=== PATIENT | female | born 1955 | race Caucasian/White ===

== ENCOUNTER 2018-08-08 03:15 | Inpatient (IN) ==
[2018-08-08] MEDS ORDERED: TORADOL IM ONE (03:43)
--- NOTE | 2018-08-08 03:49 | PROVIDER DOCUMENTATION ---
HPI-Musculoskeletal Pain/Inj - GENERAL Chief Complaint: Hip Injury Stated Complaint: HIP PAIN Time Seen by Provider: 08/08/18 03:43 Source: patient, family - HX OF PRESENT ILLNESS-MUSKULOSKELTAL Nature of Presenting Problem: 62 YOU REPORTS FALING OUT OF CHAIR 8 HR AGO ONTO LEFT HIP. NOW PIAN IS MODERATE LAYING DOWN AND MUCH WORSE W/ ATEMPTED LEFT WT-BEARING. OTHERWISE HEALTHY. PT AND DOWN FROM [place] FOR [employer]. Onset/Duration: 4-6 hours ago Timing: still present Review of Systems - Adult - REVIEW OF SYSTEMS - ADULT Constitutional: reports: no symptoms reported. denies: chills Eyes: reports: no symptoms reported Ears, Nose, Mouth & Throat: reports: no symptoms reported Cardiovascular: reports: no symptoms reported Respiratory: reports: no symptoms reported Gastrointestinal: reports: no symptoms reported Genitourinary: reports: no symptoms reported Musculoskeletal: reports: no symptoms reported Integumentary: reports: no symptoms reported Neurological: reports: no symptoms reported Psychiatric: reports: no symptoms reported Endocrine: reports: no symptoms reported Hematologic/Lymphatic: reports: no symptoms reported Allergic/Immunologic: reports: no symptoms reported All Other Systems: Reviewed and Negative Past History - Adult - PAST MEDICAL HISTORY-ADULT Review of Records: reports: Nursing Assessment Review, Medications Reviewed, Social history reviewed & non-contributory. Major Childhood Illnesses: reports: denies history Cardiovascular: reports: denies history Respiratory: reports: denies history Gastrointestinal: reports: denies history Obstetrical/Gynecological: reports: denies history Genitourinary: reports: denies history Musculoskeletal: reports: denies history Neurological: reports: denies history Endocrine/Immune: reports: denies history Other Conditions: reports: denies history Physical Exam-Injury Related - Physical Exam-Injury Related Initial Vital Signs Reviewed: Yes General Appearance: appears well, alert Eyes: PERRL/EOMI Head, Ears, Nose, Mouth & Throat: moist mucous membranes Neck: full range of motion, supple Respiratory: lungs clear, normal breath sounds Cardiovascular: regular rate, rhythm, no murmur Abdominal Exam: normal bowel sounds, non tender, soft Extremity: tenderness, other (PAIN W/ ATTEMPTED ROM LEFT HIP) Integumentary: normal color, warm/dry Neurologic: merchandising team lead II-XII nml as tested, grossly normal, no motor/sensory deficits Psych/Mental Status: normal mood/affect, normal thought content, normal thought process, oriented x 3 Progress - PLAN OF CARE/RESULTS Progress/Plan/Lab Results: Vital Signs - 8 hr 08/08/18 03:24 08/08/18 03:30 Temperature 98.2 F Pulse Rate 72 76 Respiratory Rate 18 15 Blood Pressure 107/48 107/48 O2 Sat by Pulse Oximetry 99 98 Orders Category Date Time Status Jalloh Cath Insertion ORDERED Care 08/08/18 04:24 Active XRAY PELVIS W/HIP 2-3VW LT [RAD] Stat Exams 08/08/18 03:43 Taken BASIC METABOLIC PANEL [CHEM] Stat Lab 08/08/18 04:24 Ordered CBC WITH ELECTRONIC DIFF [HEME] Stat Lab 08/08/18 04:51 Ordered PROTIME WITH INR [COAG] Stat Lab 08/08/18 04:51 Ordered PTT [COAG] Stat Lab 08/08/18 04:51 Ordered URINALYSIS W/POSS RFLX CULT [URINALYSIS] Stat Lab 08/08/18 04:24 Uncollected Hydromorphone [Dilaudid] Med 08/08/18 04:56 Discontinued 1 mg IV NOW ONE Ketorolac [Toradol] Med 08/08/18 03:43 Discontinued 60 mg IM NOW ONE Ondansetron [Zofran] Med 08/08/18 04:56 Discontinued 8 mg IV NOW ONE - XRAY 1 XRAY Study: Hip Impression: Abnormal (SUB-CAP FX LEFT HIP) - CONSULTS/PCP/HOSPITALIST Notification #1 *Consult/PCP/Hospitalist*: YESSI PICKARD Time Discussed: 04:27 Consult Disposition: Admit (ADMIT TO HOSPITALIST) #2 Consult: DR MCHUGH Time Discussed: 04:58 Consult Disposition: Admit Departure - Departure Date of Disposition Decision: 08/08/18 Time of Disposition Decision: 04:22 DIAGNOSIS: Closed fracture of left hip requiring operative repair Disposition: ADMITTED INPATIENT 09 Certified Medical Emergency: Emergent Condition: Stable Referrals and Follow-Ups: None,PCP [Primary Care Provider] - - Critical Care Note This patient required my direct & personal management of CC.: No Attestation - Physician/ MILO Attestation The physician spent face to face time with patient:: Yes Advanced Practice Provider documentation review:: Supervising physician onsite and consulted in the evaluation and care of this patient. The physician did have a face to face encounter with the patient.
[2018-08-08] MEDS ORDERED: DILAUDID IV ONE (04:56)
[2018-08-08] MEDS ORDERED: ZOFRAN IV ONE (04:56)
[2018-08-08 05:40] LABS: URINE SOURCE CATH
[2018-08-08 05:41] LABS: BASO# 0.03 X1000 (0.0-0.2); BASO% 0.4 % (0.0-0.8); EOS# 0.02 X1000 (0.0-0.7); EOS% 0.2 % (0.0-10.0); HEMATOCRIT 35.5 % (37.0-47.0); HEMOGLOBIN 12.6 g/dL (12.0-16.0); IMM GRAN# 0.03 X1000 (0.0-0.04); IMM GRAN% 0.4 % (0.0-0.5); LYMPH# 0.44 X1000 (1.2-3.4); LYMPH% 5.4 % (20.5-51.1); MCH 32.1 PG (27-31); MCHC 35.5 g/dL (33-37); MCV 90.3 FL (81-99); MONO# 0.56 X1000 (0.11-0.59); MONO% 6.9 % (1.7-9.3); NEUT# 7.01 X1000 (1.4-6.5); NEUT% 86.7 % (42.2-75.2); PLT 362 X1000 (130-400); RBC 3.93 XMIL (4.2-5.4); RDW 13.1 % (11.5-14.5); WBC 8.09 X1000 (4.8-10.8)
[2018-08-08 05:43] LABS: BILIRUBIN URINE NEGATIVE (NEGATIVE); BLOOD URINE MODERATE (NEGATIVE); COLOR YELLOW; GLUCOSE URINE NEGATIVE (NEGATIVE); KETONE URINE NEGATIVE (NEGATIVE); LEUKOCYTES URINE LARGE (NEGATIVE); NITRITE URINE NEGATIVE (NEGATIVE); PH URINE 6.5; PROTEIN URINE NEGATIVE (NEGATIVE); TURBIDITY URINE CLEAR (CLEAR); UR EPITHELIAL CELLS <10 /HPF (<10); URINE BACTERIA NEGATIVE /HPF; URINE RBC <10 /HPF (<10); URINE WBC <10 /HPF (<10); UROBILINOGEN URINE NORMAL (NORMAL)
[2018-08-08 05:44] LABS: INR 0.88; PROTIME 12.7 Seconds (11.0-16.0); PTT 31.7 Seconds (22.3-41.8)
[2018-08-08 06:00] LABS: AGAP 9; ALB/GLOB RATIO 1.6; ALBUMIN 4.1 g/dL (3.5-5.0); ALKALINE PHOSPHATASE 73 U/L (32-104); BUN 15 mg/dL (8-22); CALCIUM 8.4 mg/dL (8.8-10.2); CHLORIDE 90 mmol/L (98-107); COSMO 264; CREATININE 0.6 mg/dL (0.5-0.9); ESTIMATED GFR > 60; GLUCOSE 100 mg/dL (70-104); GOT 22 U/L (10-30); GPT 16 U/L (10-36); POTASSIUM 3.4 mmol/L (3.5-5.1); SODIUM 131 mmol/L (136-145); TCO2 32 mmol/L (25-35); TOTAL BILIRUBIN 0.56 mg/dL (0.20-1.00); TOTAL PROTEIN 6.6 g/dL (6.3-8.3)
--- NOTE | 2018-08-08 06:34 | Diag Imaging Result Doc PS360 ---
XRAY PELVIS W/HIP 2-3VW LT - 08/08/2018 INDICATION: fall, injury TECHNIQUE: Three views COMPARISON: None FINDINGS: There is an impacted minimally displaced fracture at the subcapital left hip. No dislocation. No other fractures. There is severe rectal stool impaction with a 10 cm stool ball. There is an implanted device in the left flank soft tissues. IMPRESSION: Impacted subcapital left hip fracture. Severe rectal stool impaction. Electronically signed by Sadiq Jameson 08/08/2018 6:32 AM
--- NOTE | 2018-08-08 06:43 | Diag Imaging Result Doc PS360 ---
CHEST-PORTABLE - 08/08/2018 INDICATION: Fall,Hip Fracture,Surgical Patient COMPARISON: None FINDINGS: There is a small hiatal hernia. There is blunting of the left lateral costophrenic angle which may represent a small pleural effusion. No focal infiltrates. Heart size and pulmonary vascularity is normal. IMPRESSION: Nonspecific findings. Electronically signed by Sadiq Jameson 08/08/2018 6:41 AM
--- NOTE | 2018-08-08 07:16 | EKG Report ---
Test Performed on : 08/08/2018 06:24:41 AM Test Reason : Fall,Hip Fx,Surgical Patient Blood Pressure : / mmHG Vent. Rate : 084 BPM Atrial Rate : 084 BPM P-R Int : 130 ms QRS Dur : 080 ms QT Int : 412 ms P-R-T Axes : 017 029 042 degrees QTc Int : 486 ms Normal sinus rhythm. Normal ECG No previous ECGs available Unconfirmed Result
[2018-08-08] MEDS ORDERED: KEFZOL 1 GM/D5W 1 GM/50 ML IVPB IV ONE (08:15)
[2018-08-08] MEDS ORDERED: MORPHINE IV PRN (08:47)
[2018-08-08] MEDS ORDERED: POTASSIUM CHLORIDE 20 MEQ/SWI 20 MEQ/100 ML IVPB IV ONE (08:53)
[2018-08-08] MEDS ORDERED: TYLENOL PO PRN (08:53)
[2018-08-08] MEDS: NS 1,000 ML IV SCH (10:34)
[2018-08-08] MEDS ORDERED: TRANSDERM-SCOP ONE (10:58)
[2018-08-08] MEDS ORDERED: DIPRIVAN 1% ONE (11:01)
[2018-08-08] MEDS ORDERED: XYLOCAINE-MPF 2% ONE (11:01)
[2018-08-08] MEDS ORDERED: DECADRON ONE (11:24)
[2018-08-08] MEDS ORDERED: ZOFRAN ONE (11:24)
[2018-08-08] MEDS ORDERED: OFIRMEV 1000 MG/ISOTONIC SOLN 1,000 MG/100 ML BOTTLE ONE (11:24)
[2018-08-08] MEDS ORDERED: ROBINUL ONE (11:31)
[2018-08-08] MEDS ORDERED: ZOFRAN IV PRN ×2 (12:00→13:11)
--- NOTE | 2018-08-08 12:34 | ORTHOPAEDICS CONSULTATION ---
DATE: 08/08/2018 CHIEF COMPLAINT: Left hip injury. HISTORY OF PRESENT ILLNESS: Hyacinth Martell is a 62-year-old female who fell out of a chair, injuring her left hip. She complains of left hip pain and inability to ambulate. She denies any loss of consciousness. She was here visiting her grandson, and going to his graduation [facility]. For past medical history, past surgical history, medications, and allergies, see admission history and physical. REVIEW OF SYSTEMS: Negative, except as mentioned above. All other systems were normal. PHYSICAL EXAMINATION: General: A well-developed, well-nourished female. She is alert and cooperative with exam. Extremities: Exam of her hip reveals pain with any range of motion. Her leg is otherwise neurovascularly intact. IMAGING: X-ray showed an impacted femoral neck fracture. IMPRESSION: Left impacted femoral neck fracture. PLAN: I have discussed with the patient the plan. We will try to perform a closed reduction and percutaneous pinning with 7.3 cannulated screws today. I have discussed with her the risks, benefits, and alternatives of surgery, including but not limited to, bleeding, nerve damage, infection, risk from anesthesia, hardware failure, malunion, nonunion, up to and including loss of limb, life, and other imponderables. She voices understanding. All questions were answered. No guarantees were given. She requested to proceed as planned. Will schedule surgery as soon as available in the OR. cc: Dakota Pastor MD
[2018-08-08] MEDS ORDERED: MILK OF MAGNESIA PO PRN (13:11)
[2018-08-08] MEDS ORDERED: HALDOL IV PRN (13:15)
[2018-08-08] MEDS ORDERED: KLOR-CON PO ONE (14:06)
--- NOTE | 2018-08-08 14:58 | PROGRESS NOTE ---
DATE: 08/08/2018 SUBJECTIVE: Patient is resting comfortably in bed. OBJECTIVE: Vital signs: Temperature is 99.9 degrees, pulse 76, respiratory rate is 21, blood pressure 108/70, oxygen saturation is 96%. HEENT: Atraumatic, normocephalic. Cardiovascular system: S1, S2. Respiratory system: Has evidence of good air entry bilaterally. Abdomen: Soft, nontender. No masses felt. Extremities: No evidence of edema. Central nervous system: No obvious focal deficits noted. LABS: WBC is 8.09, hematocrit is 35.5, with a platelet count of 362,000. Sodium is 131, potassium 3.4, chloride is 90, bicarb 32, BUN is 15, creatinine 0.6. UA shows a large amount of leukocytes with moderate amount of blood. X-ray of the chest shows nonspecific findings. There is a small hiatus hernia and there is blunting of the left lateral costophrenic angle which may represent a small pleural effusion. No focal infiltrates noted. ASSESSMENT AND PLAN: 1. Left hip fracture status post repair. Optimize pain control. Initiate DVT prophylaxis when considered appropriate by the orthopedic team. Also initiate physical therapy when considered appropriate by the orthopedic team. 2. Probable urinary tract infection. Obtain urine as well as blood cultures. Start patient on empiric antibiotics. 3. Hypokalemia. Replace potassium level. Check magnesium level. 4. History of obsessive-compulsive disorder. Continue the patient on Prozac. 5. History of osteoporosis. Maintain patient on calcium as well as vitamin D. The patient will need to have a dedicated DEXA scan post discharge from the hospital. cc: Douglas Card MD
[2018-08-08] MEDS ORDERED: LEVAQUIN PO SCH (15:30)
[2018-08-08] MEDS: KEFZOL 1 GM/D5W 1 GM/50 ML IVPB IV SCH (18:07)
[2018-08-08] MEDS: MORPHINE IV PRN ×2 (18:10→21:35)
[2018-08-08] MEDS: TYLENOL PO SCH (18:38)
--- NOTE | 2018-08-08 18:38 | OPERATIVE NOTE ---
PROCEDURE DATE: 08/08/2018 PREOPERATIVE DIAGNOSIS: Left impacted femoral neck fracture. POSTOPERATIVE DIAGNOSIS: Left impacted femoral neck fracture. PROCEDURE: Closed reduction and percutaneous pinning of left impacted femoral neck fracture with a 7.3 cannulated screw x3. ANESTHESIA: General. SURGEON: Dakota Pastor MD. OPERATIONAL REVIEW SERGEANT: Lupe Sunshine PA-C, who was present throughout the case, whose assistance was critical for exposure, placement of the implants, and closure. Her assistance was critical for the case to be successful. BLOOD LOSS: Minimal. DESCRIPTION OF PROCEDURE: The patient was brought to the operative suite and placed in the supine position. After satisfactory administration of general anesthesia, the patient was placed on the OSI table in the usual position for the left hip. The left hip was prepped and draped in the usual sterile fashion. A longitudinal incision was made overlying the flare of the greater trochanter. It was dissected sharply through the skin, and then three 7.3 cannulated screw guide pins were placed in an inverted triangle fashion with 1 inferior, 1 anterior superior, and 1 posterior superior. Once these were verified to be in good position, the outer cortex was reamed. Proper length screws were measured at 90 and 85 x2. The screws were then driven into place. Excellent placement of the screws and purchase of the screws was obtained. The hardware was in good position on AP and lateral images. The wound was copiously irrigated. The skin edges were approximated with 2-0 Vicryl, the skin was closed with skin soledad, and a sterile dressing was applied. The patient tolerated the procedure well without complication. At the end of the procedure, all counts were correct x2. The patient was transferred to the recovery room in stable condition. cc: Dakota Pastor MD [facility]
--- NOTE | 2018-08-08 19:34 | HISTORY AND PHYSICAL ---
PRIMARY CARE PROVIDER: Out of town physician. PAIN SPECIALIST: Dr. Ybarra from out [facility] as well. CHIEF COMPLAINT: Fall with left hip pain. HISTORY OF PRESENT ILLNESS: Ms. Martell is a 62-year-old female who is visiting here with her from the Health system. They are staying with her son. They did come down to see her grandson kaylee pete and were supposed to be going on a cruise in a few days. Last night while sitting down to eat dinner, the patient states that she went to sit down and slightly missed and slipped off the chair, landing on her left hip. The patient states that she was able to pick herself back up and sit back down in a chair, though upon trying to stand up and ambulate shortly after this she was unable to do so. The patient states she did try to tough it out at home, though was having difficulty with mobility and pain, and did present to the ER for further evaluation. She denied hitting her head. She denied any loss of consciousness. She did state she hit her left lower anterior chest, almost on the left rib margin and this is a little sore, though she denies any shortness of breath or any other injuries. The patient does have a history of osteoporosis. She also has a history of having what sounds to be a lot of arthritis, maybe joint problems. She has had a few bilateral hand surgeries as well as bilateral foot surgeries. She has had a total of 10 lower back surgeries secondary to complications from degenerative disk disease, and has had bilateral knee replacements. The patient does have an implanted morphine pump which is set at a very low basal rate. She did have this replaced last April and reportedly these last several years, according to the patient. Dr. Ybarra is her pain specialist. I am assuming he is in [place] as well. Upon evaluation in the ER, x-ray of the pelvis with left hip views did show an impacted subcapital left hip fracture as well as a severe rectal stool impaction. Chest x-ray showed some blunting in the left lateral costophrenic angle which may represent a small pleural effusion, though no infiltrates were noted. There was not any mention of rib fractures as well. Dr. Holder the ER physician did notify Dr. Pastor of the patient's hip fracture. She will remain NPO for likely surgery later on this morning. Chemistry did show a mildly low potassium of 3.4. She also did have large leukocytes noted in her urine, though the patient denies any dysuria, urinary frequency or recent diagnosis of urinary tract infection. The patient states she does have chronic problems with constipation. She states she did have a bowel movement yesterday that was not very good. She does states normally at home that she takes enemas for relief of this. The patient has been placed inpatient for admission. REVIEW OF SYSTEMS: A 14-point review of systems was conducted with the patient and all are negative except for pertinent positives mentioned in the HPI and past medical history. PAST MEDICAL HISTORY: 1. Osteoporosis. 2. Degenerative disk disease. 3. Chronic pain secondary to degenerative disk disease and multiple surgeries. PAST SURGICAL HISTORY: 1. Total of 10 low back surgeries. 2. Bilateral knee replacements. 3. Hysterectomy. 4. A few bilateral hand surgeries. 5. A few bilateral foot surgeries. SOCIAL HISTORY: The patient denies any alcohol, tobacco or illicit drug use. She is . Her was present at bedside during examination. As previously mentioned, the patient is from [place] reportedly around the [facility]. FAMILY HISTORY: Positive for her mother having history of diabetes mellitus. Her father at age 80. He did have heart disease and did have throat cancer. He was a smoker as well. ALLERGIES: The patient has allergies to nitrofurantoin and VESIcare. HOME MEDICATIONS: 1. Calcium 600+ vitamin D tablet 600 mg p.o. b.i.d. 2. Klonopin 2 mg p.o. daily. 3. Cranberry tablet 2 tablets p.o. daily. 4. Prozac 10 mg p.o. daily. 5. Hydrochlorothiazide 50 mg p.o. daily. 6. Methocarbamol 500 mg p.o. daily. 7. Pamelor 25 mg p.o. daily. 8. Fish oil 600 mg p.o. b.i.d. 9. Klor-Con 10 mg p.o. b.i.d. LABORATORY DATA: White blood cell count is 8009,hemoglobin 12.6, hematocrit 35.5, platelet count is 362,000. PT 12.7, INR 0.8, PTT is 31.7. Sodium 131, potassium 3.4, chloride 90, serum bicarbonate is 32, BUN 15, creatinine 0.6, GFR is greater than 60, glucose 100, calcium 8.4. Liver function tests within normal limits. Urinalysis was obtained via catheter and was positive for blood and leukocytes. Urine culture is pending at this time. DIAGNOSTIC DATA: 1. EKG showed normal sinus rhythm at a rate of 84 with a QTc of 486. 2. X-ray of the pelvis with left hip view showed impacted subcapital left hip fracture and severe rectal stool impaction. 3. Chest x-ray showed nonspecific findings, small hiatal hernia. There was blunting in the left lateral costophrenic angle which may represent a small pleural effusion. There were no infiltrates, and the heart size and pulmonary vascularity is normal. PHYSICAL EXAMINATION: VITAL SIGNS: Temperature 98.2 degrees, heart rate 84, respirations 19, blood pressure is 108/70 with a MAP of 74, oxygen saturation was 95% on room air. GENERAL: Ms. Martell is a very pleasant 62-year-old female. She was resting in the ER stretcher. She was in no acute distress. She was awake, alert and able to answer questions appropriately. HEENT: Head is atraumatic, normocephalic. Pupils are equal, round and reactive to light, 3 mm bilaterally and brisk. Oral mucosa is moist. Oropharynx is clear. NECK: Supple. Trachea midline. CARDIOVASCULAR: The patient has S1, S2 present. No murmurs, gallops or rubs appreciated. Regular rate and rhythm. PULMONARY: The patient has symmetrical chest expansion bilaterally. Lungs sounds were clear to auscultation in bilateral full huerta. ABDOMEN: Soft, nontender, nondistended. Bowel sounds are present in all 4 quadrants, were slightly hypoactive. EXTREMITIES: No cyanosis, clubbing or edema noted. Pulse, motor, and sensory is intact in all extremities. Radial and pedal pulses bilaterally were 2+. The patient denied any numbness or tingling in extremities, especially her left lower extremity which has the left hip fracture. She has good capillary refill, less than 3. INTEGUMENTARY: The patient's skin is pink, warm and dry. NEUROLOGICAL: The patient is alert and oriented to person, place, time and situation. There are no focal neurological deficits noted. ASSESSMENT AND PLAN: 1. Left hip fracture. The patient's x-ray did show an impacted subcapital left hip fracture. Given this, the patient will remain n.p.o. She has had a Jalloh catheter placed at this time. I do suspect that she will go to surgery later on this morning. We have placed a consult with Dr. Pastor. We will await his evaluation and further recommendations for management. The patient does have an implanted morphine pain pump. They are trying to obtain what her basal rate is, though she reports it is very low and that this pump supposedly lasts 6-7 years, and was replaced last April. We will go ahead and implement morphine 2 mg q.3 hours p.r.n. and closely monitor her response to this, as far as how well it controls her pain. She will be on continuous cardiac telemetry as well. We will continue to follow along. 2. Fall from a sitting position with left hip pain and injury, and diagnosis of left hip fracture. 3. Osteoporosis. We will continue the patient's regularly prescribed medications for this. 4. Chronic pain secondary to degenerative disk disease and multiple previous back surgeries. She does have a morphine pain pump. We will implement p.r.n. morphine as well, given that she will have acute pain related to her hip fracture and hip fracture repair. 5. Constipation. The patient does have chronic problems with this, and also her x-ray did show that she had a severe rectal stool impaction. We have ordered a bowel regimen of Colace 100 mg b.i.d. We will do daily MiraLAX as well as a Dulcolax suppository. If the patient does not have relief of symptoms and a bowel movement with her suppository and these medications, we have placed an order for the nurse to possibly perform a digital disimpaction. We will continue to follow and monitor her response to the bowel regimen that has been placed. 6. Deep vein thrombosis prophylaxis. We will hold anticoagulants at this time given that the patient is a surgical candidate. We will defer further choice of this to the orthopedic surgical team. 7. She has been placed on the surgical floor. She will have routine vital signs and continuous cardiac telemetry. We are awaiting Orthopedic Surgery evaluation and we will continue to follow along. Further orders and recommendations pending hospital course, diagnostics and attending physician evaluation. Dictated by KENZIE Monreal for Bertin Palacios MD cc: Bertin Palacios MD
[2018-08-08] MEDS ORDERED: DULCOLAX PR ONE (21:00)
[2018-08-08] MEDS ORDERED: COLACE PO SCH ×2 (21:00)
[2018-08-08] MEDS ORDERED: MIRALAX PO ONE (21:00)
[2018-08-09] MEDS: OXY IR PO PRN ×4 (01:49→13:18)
[2018-08-09] MEDS: NS 1,000 ML IV SCH (01:54)
[2018-08-09] MEDS: TYLENOL PO SCH ×2 (03:53→11:42)
[2018-08-09] MEDS: KEFZOL 1 GM/D5W 1 GM/50 ML IVPB IV SCH (03:54)
[2018-08-09] MEDS: PROTONIX PO SCH ×2 (05:19→07:48)
[2018-08-09] MEDS ORDERED: LOVENOX SUBQ SCH (06:00)
[2018-08-09 06:08] LABS: BASO# 0.03 X1000 (0.0-0.2); BASO% 0.5 % (0.0-0.8); EOS# 0.14 X1000 (0.0-0.7); EOS% 2.5 % (0.0-10.0); HEMATOCRIT 32.9 % (37.0-47.0); HEMOGLOBIN 11.3 g/dL (12.0-16.0); LYMPH# 1.03 X1000 (1.2-3.4); LYMPH% 18.1 % (20.5-51.1); MCH 32.1 PG (27-31); MCHC 34.3 g/dL (33-37); MCV 93.5 FL (81-99); MONO# 0.62 X1000 (0.11-0.59); MONO% 10.9 % (1.7-9.3); MPV 8.9 FL (7.4-10.4); NEUT# 3.87 X1000 (1.4-6.5); PLT 309 X1000 (130-400); RBC 3.52 XMIL (4.2-5.4); RDW 13.9 % (11.5-14.5); WBC 5.69 X1000 (4.8-10.8)
[2018-08-09 06:34] LABS: AGAP 7; BUN 6 mg/dL (8-22); CALCIUM 8.4 mg/dL (8.8-10.2); CHLORIDE 97 mmol/L (98-107); COSMO 266; CREATININE 0.6 mg/dL (0.5-0.9); ESTIMATED GFR > 60; GLUCOSE 93 mg/dL (70-104); POTASSIUM 3.7 mmol/L (3.5-5.1); SODIUM 134 mmol/L (136-145); TCO2 30 mmol/L (25-35)
[2018-08-09] MEDS ORDERED: FERROUS SULFATE PO SCH (08:00)
[2018-08-09] MEDS ORDERED: MIRALAX PO SCH (09:00)
[2018-08-09] MEDS ORDERED: PROZAC PO SCH (09:00)
[2018-08-09] MEDS ORDERED: PATIENT'S OWN MED PO SCH (09:00)
[2018-08-09] MEDS ORDERED: FISH OIL CONCENTRATE PO SCH (09:00)
[2018-08-09] MEDS ORDERED: CALTRATE 600 + D PO SCH (09:00)
[2018-08-09] MEDS ORDERED: PERIDEX MT SCH (09:00)
--- NOTE | 2018-08-09 09:43 | PROGRESS NOTE ---
DATE: 08/09/2018 SUBJECTIVE: Hyacinth Martell is a 62-year-old female who is postoperative day 1 from a closed reduction, percutaneous pinning of her left hip. She has no complaints. OBJECTIVE: She is a well-developed, well-nourished female. She is alert cooperative with exam. Her vital signs are stable. She is afebrile. Her hemoglobin is 11. Her hematocrit is 33. ASSESSMENT: Stable left hip. PLAN: We will get her up walking with physical therapy today. When she is mobile enough and her were comfortable enough to for her to travel to [place] by motor vehicle she can be discharged. I suspect that will be Sunday or Sunday, but if it is sooner then it is OK with me. We will change her dressing tomorrow. Dr. Liu will be available as needed. cc: Dakota Pastor MD
[2018-08-09 12:09] VITALS: BP 108/31
[2018-08-09] MEDS ORDERED: PAMELOR PO SCH (21:00)
--- NOTE | 2018-08-10 18:07 | DISCHARGE SUMMARY ---
ADMISSION DATE: 08/08/2018 DISCHARGE DATE: 08/09/2018 PRINCIPAL DIAGNOSIS: Left hip fracture status post repair. SECONDARY DIAGNOSIS: 1. Osteoporosis. 2. Obsessive compulsive disorder. 3. Hypokalemia. 4. Probable urinary tract infection. OTHER DISCHARGE MEDICATIONS: Include the followin. Levaquin 500 mg p.o. daily as directed. 2. Calcium with vitamin D 600 mg p.o. twice a day. 3. Cranberry tablets 2 tablets daily. 4. Fluoxetine 80 mg p.o. daily. 5. Hydrochlorothiazide 50 mg p.o. daily. 6. Methocarbamol 50 mg p.o. daily. 7. Nortriptyline 25 mg p.o. daily. 8. Potassium chloride 10 mg p.o. twice a day. 9. Klonopin 3 mg p.o. daily. CONSULTATIONS DONE DURING THIS HOSPITAL STAY: Orthopedics, Dr. Pastor. HOSPITAL COURSE: Ms. Hyacinth Martell is a 62-year-old female who was admitted to the hospital after she sustained a fall. And we ended up with a left hip fracture. This was repaired by the orthopedic team. Postop, the patient has done relatively well. DISCHARGE PHYSICAL EXAMINATION: Vital Signs: During my evaluation today, vitals were as follows: Temperature 97.6 degrees, pulse 70, respirations 18, blood pressure 108/31, oxygen 98%. HEENT: Atraumatic, normocephalic. Cardiovascular: S1, S2. Respiratory system: Has evidence of good entry bilaterally. Abdomen: Soft, nontender. No masses. Extremities: No evidence of edema. Central nervous system: No obvious focal deficit noted. LABS: The patient's UA shows a picture of possible UTI with moderate amount of blood. Large amount of leukocytes. At this time, the patient has done relatively well. She is stable. The patient can be discharged home if cleared by the orthopedic team. I would like to send her home on oral antibiotics for presumed UTI as well. We do not have the urine culture results back yet. In addition, she will need to follow up with her primary care physician as well as Orthopedics in the outpatient. cc: Douglas Card MD MTDD
== END 2018-08-09 15:33 | disposition home or self-care (01) | DRG 481 ==
LOC: ED 03:15 → SUATTDRO 07:54 → 4N 07:54
PROVIDERS: ATTEND Internal Medicine
CPT/HCPCS: 51702; 71010; 71045; 73502; 76000; 80048; 80053; 81001; 83735; 85025; 85610; 85730; 86850; 86900; 86901; 87077; 87088; 87186; 93005; 94761; 94799; 96372; 96374; 96375; 97110; 97116; 97162; 99285; A9270; J0131; J0690; J1100; J1170; J1650; J1885; J2270; J2405; J3480; J7030